=== PATIENT | male | born 1955 | race Caucasian/White ===

== ENCOUNTER 2018-04-18 00:20 | Emergency (ER) | payer OTHER ==
[~2018-04-18] VITALS: Ht 182.9 cm; Wt 79.4 kg
[2018-04-18 00:28] VITALS: BP_SYST 109
[2018-04-18] MEDS: MORPHINE 4 MG/ML INJ. SYRINGE IVP ONE ×4 (00:37→02:34)
[2018-04-18] MEDS ORDERED: NACL 0.9% 1,000 ML IV ONE (00:45)
[2018-04-18] MEDS ORDERED: ONDANSETRON HCL 4 MG/2 ML VIAL IVP ONE (00:45)
[2018-04-18 00:56] LABS: HEMATOCRIT 48.3 % (36-54); HEMOGLOBIN 16.3 g/dL (14.0-18.0); MEAN CORPUSCULAR HEMOGLOBIN 31 pg (27-31); MEAN CORPUSCULAR VOLUME 93 fL (79.0-98.0); RED BLOOD CELL COUNT(AUTO) 5.22 MIL/uL (4.2-6.2); WHITE BLOOD COUNT (AUTO) 9.2 K/uL (4.8-10.8)
[2018-04-18 00:57] LABS: BASOPHILS % (AUTO) 1.6 % (0.0-2.0); LYMPHOCYTES # (AUTO) 3.1 K/uL (1.0-5.5); LYMPHOCYTES % (AUTO) 34.2 % (20.5-51.5); MEAN CORPUSCULAR HGB CONC 34 % (32-36); MONOCYTES % (AUTO) 6.8 % (1.7-9.3); NEUTROPHILS # (AUTO) 5.1 K/uL (1.8-7.7); NEUTROPHILS % (AUTO) 54.4 % (40.0-70.0); PLATELET COUNT (AUTO) 320 K/uL (130-430); RED CELL DISTRIBUTION WIDTH 12.6 % (9.0-15.0)
[2018-04-18 00:58] LABS: BASOPHILS # (AUTO) 0.1 K/uL (0.0-0.2); EOSINOPHILS # (AUTO) 0.3 K/uL (0.0-0.4); MONOCYTES # (AUTO) 0.6 K/uL (0.0-1.0)
[2018-04-18 01:03] LABS: CALCIUM 9.6 mg/dL (8.4-11.0); CREATININE 0.84 mg/dL (0.55-1.30); POTASSIUM 3.2 mmol/L (3.5-5.1)
[2018-04-18 01:12] LABS: PROTHROMBIN TIME 9.9 SECS (9.5-12.5)
[2018-04-18 01:18] LABS: ALBUMIN 3.9 g/dL (3.4-4.8); TOTAL BILIRUBIN 0.3 mg/dL (0.0-1.0)
[2018-04-18] MEDS ORDERED: SIMETHICONE 80 MG TAB.CHEW PO ONE (02:00)
[2018-04-18] MEDS ORDERED: LACTULOSE 20 GM/30 ML UDC PO ONE (02:15)
[2018-04-18 02:38] VITALS: BP_SYST 128
== END 2018-04-18 02:38 | disposition home or self-care (01) ==
LOC: SED 00:20
DX: K59.00 Constipation, unspecified (principal); R14.1 Gas pain
CPT/HCPCS: 36415; 74176; 80053; 83605; 83690; 85025; 85610; 85730; 87040; 96374; 96375; 99284; J2270; J7030